=== PATIENT | male | born 1980 | race Caucasian/White ===

== ENCOUNTER → 2023-11-19 10:44 | Outpatient (REF) | payer BC, SELFPAY | LOC: HWRAD 10:44 | PROVIDERS: ATTENDING PHYSICIAN Podiatrist Foot & Ankle Surgery; FAMILY PHYSICIAN Family Medicine | DX: S90.32XA Contusion of left foot, initial encounter (principal) | CPT/HCPCS: 73630 ==

== ENCOUNTER 2023-12-16 09:15 | Inpatient (IN) | payer BC, SELFPAY ==
[2023-12-14] VITALS (8 sets, daily range): BP systolic 123–157; BP diastolic 82–104; BMI 24.9
--- NOTE | 2023-12-14 13:28 | ED.GENMED ---
History of Present Illness
General
Chief Complaint: Abdominal Pain
Source: patient
Exam Limitations: none
Time Seen by Provider: 12/14/23 13:15
Nursing documentation reviewed up to this point in time: agreed with
Travel History
Have you had any contact with someone who has COVID-19?: No
Do you have any symptoms of coronavirus? Fever > 100 degrees, chills, cough, shortness of breath, sore throat, loss of taste or smell, muscle aches, or headache?: No
History of Present Illness
History of Present Illness:
43-year-old male with no significant past medical history, had a hernia operation as a baby presents with abdominal pain. Abdominal pain started 2 days ago and has been gradually worsening. His last bowel movement was 2 days ago and normal but he
feels constipated. He tried a fleets enema, MiraLAX, prune juice with no results. He states his urine is orange. He states pain is now 5/10. Pain is generalized in his abdomen but worse in the right and left lower quadrants. He denies fever
chills, denies nausea or vomiting.
He went to urgent care yesterday and had an x-ray and was told he was 'full of poop.'
Past History
Past History
ED Past Medical History: None
ED Past Surgical History: Tonsilectomy and Other (Hernia repair as a baby)
Social History
Tobacco: Smoker
Alcohol: Occasional
Personal:
Living: with family
Employment: Employed
Review of Systems
Review of Systems
Allergies reviewed?: Yes
All Other Systems: ROS reviewed and negative except as documented in HPI and ROS
Constitutional: Denies fever
Respiratory: Denies trouble breathing
Cardiac: Denies chest pain
ABD/GI: Reports abdominal pain and constipated; Denies nausea, vomiting, diarrhea, bloody stools or black stools
: Reports flank pain (Bilateral) and dark urine; Denies dysuria, frequency, difficulty voiding or urgency
Musculoskeletal: Reports no symptoms
Skin: Reports no symptoms
Neurological: Reports no symptoms
Phy Exam
Physical Exam
Physical Exam:
GENERAL: No acute distress. A&Ox3.
CONSTITUTIONAL: Afebrile.
EYES: Clear, conjunctivae normal
ENMT: moist mucus membranes
RESPIRATORY: Regular respirations, nonlabored, lungs clear.
CARDIOVASCULAR: Regular rate and rhythm, no murmurs, no rubs.
GI: Soft, generally tender to palpate abdomen, more tender in the right and left lower quadrants. No palpable masses. Normal BS
MUSCULOSKELETAL: Moves with ease. Well perfused.
SKIN: Warm, dry, pink
PSYCH: Normal mood and affect. Well kept, interactive and appropriate
NEUROLOGIC: Awake, alert and oriented. No focal neurological deficits
Course
Orders/Labs/Results
Orders:
Orders
12/14/23 Breakfast
NPO
Allow oral meds: Yes
Allow clear liquids: Sips of Clears
NPO with Ice Chips: Yes
12/14/23 13:27
0.9% Sodium Chloride 1000 ml [Nss] 1,000 ml IV BOLUS
12/14/23 13:28
CT Abd/pel W Iv And Oral Contr Urgent
Comment:
Reason For Exam: Generalized abdominal pain, constipation
Iohexol [Omnipaque] 50 ml .ROUTE .STK-MED ONE
Iohexol [Omnipaque] See Protocol PO NOW STA
12/14/23 13:36
C-Reactive Protein Urgent
Complete Blood Count/With Diff Urgent
Comprehensive Metabolic Panel Urgent
Lipase Urgent
12/14/23 14:15
Urinalysis Reflex To Culture Urgent
Date Specimen was Collected: 12/14/23
Time Specimen was Collected: 14:11
Urine Microscopic Reflex Cult Urgent
12/14/23 17:07
Piperacillin/Tazo 3.375 Gram [Zosyn] 3.375 gram in 50 ml IV NOW
12/14/23 20:00
Add On- LAB Urgent
Tests Added?: CRP
Code Status As Directed
Resuscitation Status: Full Code
Lactated Ringers [Lr] 1,000 ml IV 100 mls/hr
Intake/ Output As Directed
Frequency: q12h
Notify MD As Directed
Notify physician if: HR <50 or >110
SBP <90 or >160
O2 <90%
UOP <30ml/hr
Smoking Cessation Counseling [RESP] Routine
12/14/23 20:01
Activity As Directed
Activity Level: Out of Bed-Early Mobility
Vital Signs As Directed
Frequency: Per unit guidelines
DX Deep Vein Thrombosis Video Routine
12/14/23 20:05
HYDROmorphone [Dilaudid] 0.25 mg IV Q4HPRN PRN
HYDROmorphone [Dilaudid] 0.5 mg IV Q4HPRN PRN
Ketorolac [Toradol] 15 mg IV Q6HPRN PRN
12/14/23 20:42
Admit/Transfer Patient As Directed
Co-Sign Provider:
Level of Care: Observation services
Assign to:: Medical/Surgical
Physician / Group: Uche Howe
Diagnosis: perforated diverticulitis without free air or free fluid
12/14/23 22:00
Famotidine [Pepcid] 20 mg IV HS
12/15/23 00:00
Piperacillin/Tazo 3.375 Gram [Zosyn] 3.375 gram in 50 ml IV Q6H
12/15/23 07:39
Basic Metabolic Panel IN AM
CRP [C-Reactive Protein] IN AM
Complete Blood Count/No Diff IN AM
12/15/23 08:00
Loratadine [Claritin] 10 mg PO DAILY
12/15/23 18:00
Enoxaparin Sodium [Lovenox] 40 mg SC QPM
Abnormal Lab Results
12/14/23 12/14/23
13:36 14:15
WBC 25.6 H 10^3/uL
(4.8-10.8)
MCH 32.1 H pg
(27.0-31.0)
Abs Immat Gran (auto) 0.1 H 10^3/uL
(0-0.05)
Absolute Neuts (auto) 20.7 H 10^3/uL
(1.4-6.5)
Absolute Monos (auto) 1.5 H 10^3/uL
(0.1-0.6)
Neutrophils % 80.6 H %
(42.2-75.2)
Lymphocytes % 11.9 L %
(20.5-51.1)
Sodium 134 L mmol/L
(135-145)
Carbon Dioxide 19 L mmol/L
(22-30)
Glucose 166 H mg/dl
(70-99)
C-Reactive Protein 267.40 H mg/L
(0.0-10.00)
Urine Ketones 1+ A
(Negative)
Ur Occult Blood Reflex Trace A
(Negative)
Urine Bacteria (Reflex) Few A
(Negative)
12/14/23 13:36
12/14/23 13:36
Vital Signs
Initial and Last Documented VS:
Initial Vital Signs
Temp Pulse Resp BP Pulse Ox
99.2 F 111 18 157/96 96
12/14/23 13:05 12/14/23 13:05 12/14/23 13:05 12/14/23 13:05 12/14/23 13:05
Last Documented Vital Signs
Temp Pulse Resp BP Pulse Ox
99 F 85 16 136/94 97
12/15/23 07:17 12/15/23 07:17 12/15/23 07:17 12/15/23 07:17 12/15/23 07:17
MDM/Problems Addressed
Differential Diagnosis Includes:
Constipation, bowel obstruction, diverticulitis, gallbladder disease
MDM/Problems Addressed:
43-year-old male with no significant past medical history, had a hernia operation as a baby presents with abdominal pain. Abdominal pain started 2 days ago and has been gradually worsening. His last bowel movement was 2 days ago and normal but he
feels constipated. He tried a fleets enema, MiraLAX, prune juice with no results. He states his urine is orange. He states pain is now 5/10. Pain is generalized in his abdomen but worse in the right and left lower quadrants. He denies fever
chills, denies nausea or vomiting.
He went to urgent care yesterday and had an x-ray and was told he was 'full of poop.'
Afebrile, NAD
3:00 p.m.
CBC: WBC 25.6 with elevated neutrophils
CMP: No clinically significant abnormality
U/A neg
4:30 p.m.
IMPRESSION:
Mid sigmoid colon wall thickening and inflammation with localized extraluminal free air just superior to the segment of inflamed colon most compatible with a bowel perforation, potentially on the basis of a perforated diverticulitis. No free air
elsewhere in the abdomen. No pericolonic abscess. Wall thickening of an adjacent distal ileal small bowel loop, which may be reactive.
Consulted Colorectal surgeon Dr. Howe, sent of CT results
He will admit to his service
7:00 p.m.
Pt remaines stable. IV antibiotics in.
Awaiting Colorectal surgeon
*Critical Care Note
Total Time (30-74mins, 75-104mins- exclusive of procedures): Not Applicable
ED Attending Note
-
Portions of this chart may have been created with voice recognition software.� Occasional wrong word or��sound alike� substitutions may have occurred due to the inherent limitations of voice recognition software.
Discharge Plan
Departure
Patient Disposition: Admit
Date of Disposition: 12/14/23
Time of Disposition: 17:05
Presentation/result/management discussed w/ accepting MD/DO: Dr. Howe
Condition: Fair
Discharge Problem:
Bowel perforation
Interventions
Interventions:
*Risk Screen - Suicide Last Done: 12/14/23 13:05
*General Assessment Last Done: 12/14/23 13:57
*Neglect/Abuse Screening Last Done: 12/14/23 13:05
ED- Fall Risk Assessment Last Done: 12/14/23 13:37
*ED COVID-19 Vaccine History Last Done: 12/14/23 13:05
*Nursing Disposition Last Done: 12/14/23 22:35
TA-Rppijh-Ejguuidptq Assessment Last Done: 12/14/23 13:36
Discharge Date and Time
Discharge Date/Time: 12/14/23 22:35
[2023-12-14] MEDS: OMNIPAQUE 50 ML PO (13:32)
[2023-12-14] MEDS: NSS 1000 IV (13:33)
[2023-12-14 13:43] LABS: % Basophils 0.5 % (0-2); % Eosinophils 0.6 % (0-6); % Immature Granulocytes 0.5 % (0-0.5); % Lymphocytes 11.9 % (20.5-51.1); % Monocytes 5.9 % (1.7-9.3); % Neutrophils 80.6 % (42.2-75.2); Absolute Basophils 0.1 10^3/uL (0-0.2); Absolute Eosinophils 0.2 10^3/uL (0-0.7); Absolute Immature Granulocytes 0.1 10^3/uL (0-0.05); Absolute Lymphocytes 3.1 10^3/uL (1.2-3.4); Absolute Monocytes 1.5 10^3/uL (0.1-0.6); Absolute Neutrophils 20.7 10^3/uL (1.4-6.5); Hematocrit 44.5 % (39.0-52.0); Hemoglobin 16.1 g/dL (13.0-18.0); Mean Corp Hgb Conc. 36.2 g/dL (33.0-37.0); Mean Corpuscular Hgb 32.1 pg (27.0-31.0); Mean Corpuscular Volume 88.6 fL (80.0-94.0); Mean Platelet Volume 9.4 fL (7.4-10.4); Nucleated Red Blood Cells % 0 % (-); Platelet Count 265 10^3/uL (130-400); Red Blood Cell Count 5.02 10^6/uL (4.70-6.10); Red Cell Dist. Width 12.7 % (11.5-14.5); White Blood Cell Count 25.6 10^3/uL (4.8-10.8)
[2023-12-14 14:14] LABS: ALT (SGPT) 24 U/L (0-50); AST (SGOT) 24 U/L (17-59); Albumin 4.4 g/dl (3.5-5.0); Alkaline Phosphatase 83 U/L (38-126); Blood Urea Nitrogen 10 mg/dl (9-20); Calcium 9.5 mg/dl (8.4-10.2); Carbon Dioxide 19 mmol/L (22-30); Chloride 103 mmol/L (98-107); Estimated Creatinine Clearance > 125 ml/min; Glucose 166 mg/dl (70-99); Lipase 60 U/L (23-300); Potassium 4.1 mmol/L (3.5-5.1); Sodium 134 mmol/L (135-145); Total Bilirubin 1.2 mg/dl (0.2-1.3); Total Protein 7.5 g/dl (6.3-8.2); eGFR > 60.00
[2023-12-14 14:27] LABS: Urine Albumin Negative (Neg - Trace); Urine Bilirubin Negative (Negative); Urine Character Clear (Clear); Urine Color Yellow; Urine Glucose Negative (Negative); Urine Ketone 1+ (Negative); Urine Leukocyte Negative (Negative); Urine Nitrite Negative (Negative); Urine Occult Blood Trace (Negative); Urine Urobilinogen Negative (Neg - 1+); Urine pH 6.5 (5.0-9.0)
[2023-12-14 15:05] LABS: Urine Bacteria Few (Negative); Urine Red Blood Cell 0-2 /HPF (0-2); Urine Squamous Cell 0-2 /LPF (Few); Urine White Cell 0-2 /HPF (0-5)
[2023-12-14] MEDS: ZOSYN 50 IV ×2 (17:16→23:19)
--- NOTE | 2023-12-14 20:08 | CON.CRS ---
Consultation
-
Performing Provider: Uche Howe MD
Medical History
-
History of Present Illness:
43-year-old male with PMH of seasonal allergies, acid reflux who presents with 3 days of worsening abdominal pain. This is never happened to him before. The pain was periumbilical/suprapubic and radiated to the bilateral flanks and back. The pain
started 3 days ago and was mild. Yesterday, the pain reached its worst, about 6�10. He was seen at an urgent care. He was also having constipation. He took 2 enemas and MiraLAX yesterday. The pain did not resolve today and therefore he
presented to the emergency department. It is associated with nausea, but denies vomiting. Denies any fevers, urinary symptoms, hematochezia, CP/SOB. He has never had a colonoscopy.
Past Medical History
Past Medical History: Other (As above)
Past Surgical History: Other (Inguinal hernia at 2 months old, bilateral LLE fasciotomies in [facility] for compartment syndrome due to overtraining in soccer, deviated septum)
Social History
Tobacco: Smoker (1 pack/day for 20 years)
Alcohol: Occasional
Drug: None
Living: With Family
Employment: Employed
Family History
Family History: Other (Maternal grandfather and uncle with diverticulitis, IBS)
Allergies / Home Medications
Allergy/AdvReac Type Severity Reaction Status Date / Time
No Known Allergies Allergy Verified 12/14/23 13:05
�Medication �Instructions �Recorded �Confirmed �Type
cimetidine 400 mg tablet 400 mg PO BID PRN 12/14/23 12/14/23 History
indigestion/chronic plantars wart
cimetidine 400 mg tablet 400 mg PO DAILY Gastrointestinal 12/14/23 12/14/23 History
Issue
loratadine 10 mg tablet (Claritin) 10 mg PO DAILY Allergies 12/14/23 12/14/23 History
Review of Systems
-
All other systems: Negative unless noted
A 10 point review of systems was completed, and was negative except as per HPI.
Physical Exam
Vital Signs
Temp 99.2 F 12/14/23 13:05
Pulse 86 12/14/23 14:00
Resp Rate 18 12/14/23 14:00
Blood pressure 136/82 12/14/23 17:20
SaO2 98 12/14/23 18:15
12/13/23 12/14/23 12/15/23
06:59 06:59 06:59
Actual Weight 76.4 kg
Body Mass Index (BMI) 24.9
Lab Results / Allergies
12/14/23 13:36
12/14/23 13:36
WBC 25.6 10^3/uL (4.8-10.8) H 12/14/23 13:36
Hgb 16.1 g/dL (13.0-18.0) 12/14/23 13:36
Hct 44.5 % (39.0-52.0) 12/14/23 13:36
Plt Count 265 10^3/uL (130-400) 12/14/23 13:36
Abs Immat Gran (auto) 0.1 10^3/uL (0-0.05) H 12/14/23 13:36
Neutrophils % 80.6 % (42.2-75.2) H 12/14/23 13:36
Allergy/AdvReac Type Severity Reaction Status Date / Time
No Known Allergies Allergy Verified 12/14/23 13:05
Physical Exam
General: Well Developed, Well Nourished and No Apparent Distress
HEENT: Normocephalic and Atraumatic
Respiratory: Non Labored Respirations
GI: Soft, Non Distended and Tender (Mildly to moderately tender in the suprapubic region, less so in the RLQ/LLQ; no rebound, minimal guarding)
Skin: Warm and Dry
Neuro: Awake and AO x 3
Data Reviewed
-
CT Scan: Image Personally Visualized and interpreted, Discussed with Physician, Discussed with Patient and Discussed with Family
Labs: Labs Reviewed by me, Discussed with Physician and Discussed with Patient
Assessment / Plan
-
43-year-old male with PMH of acid reflux and seasonal allergies who presents with 3 days of worsening lower abdominal pain associated with nausea; no previous colonoscopy; in the ED, afebrile, heart rate 111 but improved to 80, WBC 25.6, Cr 0.7, CT
concerning for sigmoid inflammation with focus of extraluminal air, concerning for perforated diverticulitis without free air or free fluid
�No acute surgical intervention currently indicated as patient is nonperitoneal and hemodynamically stable; explained the pathophysiology of diverticulitis and the treatment options, which range from nonoperative measures to emergency surgery;
explained the risks of nonoperative measures including but not limited to treatment failure requiring surgery; explained the risks of surgery in the urgent setting, including but not limited to, increased risk for open surgery and ostomy; patient
understood, and parents were present; all questions were answered
� Admit to colorectal
� Keep n.p.o. with IVF
� DVT PPx with Lovenox
� Continue IV Zosyn
� Pain control with Toradol and Dilaudid as needed
� OOB/IS
[2023-12-14] MEDS: LR 1000 IV (21:06)
[2023-12-14] MEDS: PEPCID 20 MG IV (22:52)
[2023-12-14] MEDS: NSS (PRESERVATIVE FREE) 8 ML IV (22:53)
[2023-12-14] MEDS: DILAUDID 0.25 MG IV (23:00)
[2023-12-15] MEDS: DILAUDID 0.5 MG IV ×4 (04:08→21:26)
[2023-12-15] MEDS: ZOSYN 50 IV ×4 (05:17→21:25)
[2023-12-15 07:17] VITALS: BP 136/94
[2023-12-15 08:03] LABS: Hematocrit 42.4 % (39.0-52.0); Hemoglobin 14.6 g/dL (13.0-18.0); Mean Corp Hgb Conc. 34.4 g/dL (33.0-37.0); Mean Corpuscular Hgb 31.6 pg (27.0-31.0); Mean Corpuscular Volume 91.8 fL (80.0-94.0); Mean Platelet Volume 9.6 fL (7.4-10.4); Platelet Count 248 10^3/uL (130-400); Red Blood Cell Count 4.62 10^6/uL (4.70-6.10); Red Cell Dist. Width 12.7 % (11.5-14.5); White Blood Cell Count 21.8 10^3/uL (4.8-10.8)
[2023-12-15 08:25] LABS: Blood Urea Nitrogen 10 mg/dl (9-20); Calcium 9.1 mg/dl (8.4-10.2); Carbon Dioxide 19 mmol/L (22-30); Chloride 105 mmol/L (98-107); Estimated Creatinine Clearance 119 ml/min; Glucose 85 mg/dl (70-99); Sodium 135 mmol/L (135-145); eGFR > 60.00
--- NOTE | 2023-12-15 08:32 | W.PN.CRS1 ---
Today's Communication / Plan
-
trend WBC (coming down)
continue abx
keep NPO today
I/S
Assessment/Plan
-
43-year-old male with PMH of acid reflux and seasonal allergies who presents with 3 days of worsening lower abdominal pain associated with nausea; no previous colonoscopy; in the ED, afebrile, heart rate 111 but improved to 80, WBC 25.6, Cr 0.7, CT
concerning for sigmoid inflammation with focus of extraluminal air, concerning for perforated diverticulitis without free air or free fluid
WBC: 21.8 from 25.6. Vitals normal. Afebrile.
� Continue NPO status today.
� Will continue with IVFS.
� DVT PPx with Lovenox.
� Continue IV Zosyn.
� Pain control with Toradol and Dilaudid as needed.
� OOB as tolerated.
- Incentive spirometry q1 hour while awake ordered.
- No plans for OR today. If worsens, will require a colectomy with colostomy creation. Discussed with patient.
Subjective Data
Subjective Data
Date of Service: December 15, 2023
Patient states he has some suprapubic and llq tenderness which has not changed. He has no nausea or vomiting. He has flatus and had a bowel movement yesterday AM. He is urinating without difficulty.
Objective Data
-
Vital Signs
Temp Pulse Resp BP Pulse Ox
99 F 85 16 136/94 97
12/15/23 07:17 12/15/23 07:17 12/15/23 07:17 12/15/23 07:17 12/15/23 07:17
Intake & Output
12/14/23 12/15/23 12/16/23
06:59 06:59 06:59
Intake Total 900 / 900
Balance 900 / 900
Intake:
IV fluids (Total) 900 / 900
Lab Results
06/12/24 07:39
12/15/23 07:39
Physical Exam
-
General: No Acute Distress and AOx3
Abdomen: Soft, Non Distended and Tender (suprapubic/LLQ )
Skin: Warm and Dry
[2023-12-15] MEDS: LR 1000 IV ×2 (09:09→18:43)
[2023-12-15] MEDS: CLARITIN 10 MG PO (09:09)
--- NOTE | 2023-12-15 14:38 | CM ---
Initial assessment completed with patient with in room. Patient resides with and 10 y/o daughter in a 2 story home plus basement with B/B on 2nd and 1/2 bath on , 5 steps to enter. No DME or in-home services. 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
drove and worked. No history of psychiatric hospitalizations. Pharmacy is [facility] in [place] and he does not have a PCP at this time. Discharge Plan of Care: Anticipate home with no needs. Will continue to follow should needs change.
[2023-12-15 15:30] VITALS: BP 138/93
[2023-12-15] MEDS: LOVENOX SC (17:38)
[2023-12-15 18:36] VITALS: BP 156/95
[2023-12-15] MEDS: NSS (PRESERVATIVE FREE) 8 ML IV (21:25)
[2023-12-15] MEDS: PEPCID 20 MG IV (21:26)
[2023-12-15 23:35] VITALS: BP 137/84
[2023-12-16] MEDS: DILAUDID 0.5 MG IV ×2 (02:59→08:56)
[2023-12-16] MEDS: ZOSYN 50 IV ×4 (02:59→21:06)
[2023-12-16] MEDS: LR 1000 IV ×2 (05:45→13:27)
[2023-12-16 07:35] VITALS: BP 120/72
[2023-12-16 07:43] LABS: % Basophils 0.7 % (0-2); % Eosinophils 5.2 % (0-6); % Immature Granulocytes 0.4 % (0-0.5); % Lymphocytes 22.4 % (20.5-51.1); % Monocytes 8.2 % (1.7-9.3); % Neutrophils 63.1 % (42.2-75.2); Absolute Basophils 0.1 10^3/uL (0-0.2); Absolute Eosinophils 0.8 10^3/uL (0-0.7); Absolute Immature Granulocytes 0.1 10^3/uL (0-0.05); Absolute Lymphocytes 3.6 10^3/uL (1.2-3.4); Absolute Monocytes 1.3 10^3/uL (0.1-0.6); Absolute Neutrophils 10.1 10^3/uL (1.4-6.5); Hematocrit 42.2 % (39.0-52.0); Mean Corp Hgb Conc. 33.2 g/dL (33.0-37.0); Mean Corpuscular Volume 93.6 fL (80.0-94.0); Mean Platelet Volume 9.9 fL (7.4-10.4); Nucleated Red Blood Cells % 0 % (-); Platelet Count 284 10^3/uL (130-400); Red Blood Cell Count 4.51 10^6/uL (4.70-6.10); Red Cell Dist. Width 12.3 % (11.5-14.5); White Blood Cell Count 15.9 10^3/uL (4.8-10.8)
[2023-12-16] MEDS: CLARITIN 10 MG PO (08:55)
--- NOTE | 2023-12-16 09:13 | W.PN.CRS1 ---
Today's Communication / Plan
-
clears to fulls
add tylenol
Assessment/Plan
-
43-year-old male with PMH of acid reflux and seasonal allergies who presents with 3 days of worsening lower abdominal pain associated with nausea; no previous colonoscopy; in the ED, afebrile, heart rate 111 but improved to 80, WBC 25.6, Cr 0.7, CT
concerning for sigmoid inflammation with focus of extraluminal air, concerning for perforated diverticulitis without free air or free fluid
WBC: 15.9 from 21.8. Vitals normal. Afebrile.
� Start on clear liquid diet. Okay to advance to fulls later today if tolerating clears.
� Will continue with IVFS, d/c when tolerating clears.
� DVT PPx with Lovenox.
� Continue IV Zosyn.
� Pain control with Toradol and Dilaudid as needed. Will add Tylenol.
� OOB as tolerated.
- Incentive spirometry q1 hour while awake ordered.
- No plans for OR today. If worsens, will require a colectomy with colostomy creation. Discussed with patient.
Subjective Data
Subjective Data
Date of Service: December 16, 2023
Patient states he still feels sore. He is in less pain than when he came in. He has flatus. He has no bowel movements yet. He is hungry.
Objective Data
-
Vital Signs
Temp Pulse Resp BP Pulse Ox
98.0 F 80 16 120/72 96
12/16/23 07:35 12/16/23 07:35 12/16/23 07:35 12/16/23 07:35 12/16/23 07:35
Intake & Output
12/15/23 12/16/23 12/17/23
06:59 06:59 06:59
Intake Total 900 / 900 1100 / 1100 1200 / 1200
Balance 900 / 900 1100 / 1100 1200 / 1200
Intake:
IV fluids (Total) 900 / 900 1100 / 1100 1100 / 1100
IV piggybacks 100 / 100
Other:
Number of approximated SMALL 2
amounts of urine
Number of approximated MODERATE 2 2
amounts of urine
Lab Results
12/16/23 06:06
12/15/23 07:39
Physical Exam
-
General: No Acute Distress and AOx3
Abdomen: Soft, Non Distended and Tender (suprapubic, LLQ, improving)
Skin: Warm and Dry
[2023-12-16] MEDS: TYLENOL 650 MG PO ×4 (10:24→21:07)
[2023-12-16 15:53] VITALS: BP 132/85
[2023-12-16] MEDS: LOVENOX 40 MG SC (17:13)
[2023-12-16] MEDS: PEPCID 20 MG IV (21:06)
[2023-12-16] MEDS: NSS (PRESERVATIVE FREE) 8 ML IV (21:06)
[2023-12-16 23:20] VITALS: BP 119/95
[2023-12-17] MEDS: ZOSYN 50 IV ×4 (02:30→21:17)
[2023-12-17] MEDS: TYLENOL 650 MG PO ×5 (02:30→21:18)
[2023-12-17] MEDS: TYLENOL PO (06:08)
[2023-12-17 07:50] LABS: % Basophils 0.9 % (0-2); % Eosinophils 5.9 % (0-6); % Immature Granulocytes 0.4 % (0-0.5); % Neutrophils 63.8 % (42.2-75.2); Absolute Basophils 0.1 10^3/uL (0-0.2); Absolute Eosinophils 0.8 10^3/uL (0-0.7); Absolute Immature Granulocytes 0.1 10^3/uL (0-0.05); Absolute Lymphocytes 2.5 10^3/uL (1.2-3.4); Absolute Monocytes 1.1 10^3/uL (0.1-0.6); Absolute Neutrophils 8.1 10^3/uL (1.4-6.5); Hematocrit 39.3 % (39.0-52.0); Hemoglobin 13.7 g/dL (13.0-18.0); Mean Corp Hgb Conc. 34.9 g/dL (33.0-37.0); Mean Corpuscular Hgb 31.5 pg (27.0-31.0); Mean Corpuscular Volume 90.3 fL (80.0-94.0); Mean Platelet Volume 9.5 fL (7.4-10.4); Nucleated Red Blood Cells % 0 % (-); Platelet Count 299 10^3/uL (130-400); Red Blood Cell Count 4.35 10^6/uL (4.70-6.10); White Blood Cell Count 12.7 10^3/uL (4.8-10.8)
--- NOTE | 2023-12-17 08:42 | W.PN.CRS1 ---
Today's Communication / Plan
-
low residue diet
Assessment/Plan
-
43-year-old male with PMH of acid reflux and seasonal allergies who presents with 3 days of worsening lower abdominal pain associated with nausea; no previous colonoscopy; in the ED, afebrile, heart rate 111 but improved to 80, WBC 25.6, Cr 0.7, CT
concerning for sigmoid inflammation with focus of extraluminal air, concerning for perforated diverticulitis without free air or free fluid
WBC: 12.7 from 15.9. Vitals normal. Afebrile.
� Will advance diet to low residue.
� DVT PPx with Lovenox.
� Continue IV Zosyn.
� Pain control with Toradol/Tylenol, will switch Dilaudid to Roxicodone.
� OOB as tolerated.
- Incentive spirometry q1 hour while awake ordered.
- Okay for d/c once WBC normalized and tolerating low residue diet.
Subjective Data
Subjective Data
Date of Service: December 17, 2023
Patient states he feels 'good'. He has no nausea or vomiting. He is having flatus and bowel movements. He has little to no pain.
Objective Data
-
Vital Signs
Temp Pulse Resp BP Pulse Ox
97.8 F 78 20 119/95 99
12/17/23 07:25 12/16/23 23:20 12/16/23 23:20 12/16/23 23:20 12/17/23 07:25
Intake & Output
12/16/23 12/17/23 12/18/23
06:59 06:59 06:59
Intake Total 1100 / 1100 2540 / 2540
Balance 1100 / 1100 2540 / 2540
Intake:
Oral fluids 1340 / 1340
IV fluids (Total) 1100 / 1100 1100 / 1100
IV piggybacks 100 / 100
Other:
Number of approximated SMALL 2
amounts of urine
Number of approximated MODERATE 2 4
amounts of urine
Number of unmeasured liquid
stools
Rectum 1
Lab Results
12/17/23 07:06
12/15/23 07:39
Physical Exam
-
General: No Acute Distress and AOx3
Abdomen: Soft, Non Distended and Tender (mild, suprapubic)
Skin: Warm and Dry
[2023-12-17] MEDS: CLARITIN 10 MG PO (09:45)
--- NOTE | 2023-12-17 12:43 | CM ---
Uche is feeling somewhat better today and hoping to go home tomorrow pending blood work results and toleration of diet.
Plan: Discharge to home with family; no identified needs.
PCP: None
[facility]
[2023-12-17 15:39] VITALS: BP 128/81
[2023-12-17] MEDS: LOVENOX 40 MG SC (17:50)
[2023-12-17] MEDS: PEPCID 20 MG IV (21:17)
[2023-12-17] MEDS: NSS (PRESERVATIVE FREE) 8 ML IV (21:17)
[2023-12-17 23:19] VITALS: BP 139/91
[2023-12-18] MEDS: ZOSYN 50 IV ×4 (02:05→21:12)
[2023-12-18] MEDS: TYLENOL 650 MG PO ×5 (02:05→21:13)
[2023-12-18] MEDS: TYLENOL PO (06:00)
[2023-12-18 07:25] VITALS: BP 137/95
[2023-12-18] MEDS: CLARITIN 10 MG PO (08:40)
[2023-12-18 08:48] LABS: % Basophils 0.7 % (0-2); % Eosinophils 4.9 % (0-6); % Immature Granulocytes 0.4 % (0-0.5); % Lymphocytes 23.1 % (20.5-51.1); % Monocytes 7.2 % (1.7-9.3); % Neutrophils 63.7 % (42.2-75.2); Absolute Basophils 0.1 10^3/uL (0-0.2); Absolute Eosinophils 0.7 10^3/uL (0-0.7); Absolute Immature Granulocytes 0.1 10^3/uL (0-0.05); Absolute Lymphocytes 3.3 10^3/uL (1.2-3.4); Hematocrit 44.7 % (39.0-52.0); Hemoglobin 15.8 g/dL (13.0-18.0); Mean Corp Hgb Conc. 35.3 g/dL (33.0-37.0); Mean Corpuscular Hgb 31.7 pg (27.0-31.0); Mean Corpuscular Volume 89.8 fL (80.0-94.0); Mean Platelet Volume 9.1 fL (7.4-10.4); Nucleated Red Blood Cells % 0 % (-); Platelet Count 328 10^3/uL (130-400); Red Blood Cell Count 4.98 10^6/uL (4.70-6.10); Red Cell Dist. Width 12.4 % (11.5-14.5); White Blood Cell Count 14.1 10^3/uL (4.8-10.8)
[2023-12-18 09:13] LABS: Blood Urea Nitrogen 12 mg/dl (9-20); Calcium 10.1 mg/dl (8.4-10.2); Carbon Dioxide 23 mmol/L (22-30); Chloride 105 mmol/L (98-107); Estimated Creatinine Clearance 106 ml/min; Glucose 113 mg/dl (70-99); Potassium 4.5 mmol/L (3.5-5.1); Sodium 140 mmol/L (135-145); eGFR > 60.00
--- NOTE | 2023-12-18 09:13 | W.PN.CRS1 ---
Today's Communication / Plan
-
continue low residue
abx
hold on d/c given wbc increase
Assessment/Plan
-
43-year-old male with PMH of acid reflux and seasonal allergies who presents with 3 days of worsening lower abdominal pain associated with nausea; no previous colonoscopy; in the ED, afebrile, heart rate 111 but improved to 80, WBC 25.6, Cr 0.7, CT
concerning for sigmoid inflammation with focus of extraluminal air, concerning for perforated diverticulitis without free air or free fluid
WBC: 14.1 from 12.7. Vitals normal. Afebrile.
� Continue low residue diet.
� DVT PPx with Lovenox.
� Continue IV Zosyn.
� Pain control with Toradol/Tylenol, Roxicodone PRN.
� OOB as tolerated.
- Incentive spirometry q1 hour while awake ordered.
- Hold on d/c today given WBC. Trend labs.
- Suppository x 1.
Subjective Data
Subjective Data
Date of Service: December 18, 2023
Patient states that he feels much better overall. He has some flatus but no formed bowel movement. He denies bleeding. His tenderness has overall improved. He denies nausea or vomiting. He is tolerating a diet.
Objective Data
-
Vital Signs
Temp Pulse Resp BP Pulse Ox
97.9 F 69 18 137/95 97
12/18/23 07:25 12/18/23 07:25 12/18/23 07:25 12/18/23 07:25 12/18/23 07:25
Intake & Output
12/17/23 12/18/23 12/19/23
06:59 06:59 06:59
Intake Total 2540 / 2540 2200 / 2200
Balance 2540 / 2540 2200 / 2200
Intake:
Oral fluids 1340 / 1340 2100 / 2100
IV fluids (Total) 1100 / 1100
IV piggybacks 100 / 100 100 / 100
Other:
Number of approximated MODERATE 4 3
amounts of urine
Number of unmeasured liquid
stools
Rectum 1
Lab Results
12/18/23 08:35
Physical Exam
-
General: No Acute Distress and AOx3
Abdomen: Soft, Non Distended and Tender (RLQ- mild)
Skin: Warm and Dry
[2023-12-18] MEDS: DULCOLAX 10 MG RECTAL (10:30)
[2023-12-18 15:20] VITALS: BP 137/88
[2023-12-18] MEDS: LOVENOX 40 MG SC (17:48)
[2023-12-18] MEDS: NSS (PRESERVATIVE FREE) 8 ML IV (21:12)
[2023-12-18] MEDS: PEPCID 20 MG IV (21:12)
[2023-12-18 23:33] VITALS: BP 141/91
[2023-12-19] MEDS: TYLENOL PO ×4 (02:45→13:25)
[2023-12-19] MEDS: ZOSYN 50 IV ×4 (02:46→21:20)
[2023-12-19 07:30] VITALS: BP 126/90
[2023-12-19 07:53] LABS: % Eosinophils 5.9 % (0-6); % Immature Granulocytes 0.4 % (0-0.5); % Lymphocytes 23.7 % (20.5-51.1); % Monocytes 6.7 % (1.7-9.3); % Neutrophils 62.3 % (42.2-75.2); Absolute Basophils 0.2 10^3/uL (0-0.2); Absolute Eosinophils 0.9 10^3/uL (0-0.7); Absolute Immature Granulocytes 0.1 10^3/uL (0-0.05); Absolute Lymphocytes 3.6 10^3/uL (1.2-3.4); Absolute Neutrophils 9.5 10^3/uL (1.4-6.5); Hematocrit 42.9 % (39.0-52.0); Hemoglobin 15.4 g/dL (13.0-18.0); Mean Corp Hgb Conc. 35.9 g/dL (33.0-37.0); Mean Corpuscular Hgb 32.9 pg (27.0-31.0); Mean Corpuscular Volume 91.7 fL (80.0-94.0); Mean Platelet Volume 9.1 fL (7.4-10.4); Nucleated Red Blood Cells % 0 % (-); Platelet Count 316 10^3/uL (130-400); Red Blood Cell Count 4.68 10^6/uL (4.70-6.10); Red Cell Dist. Width 12.3 % (11.5-14.5); White Blood Cell Count 15.3 10^3/uL (4.8-10.8)
[2023-12-19 08:07] LABS: Blood Urea Nitrogen 11 mg/dl (9-20); Calcium 9.9 mg/dl (8.4-10.2); Carbon Dioxide 25 mmol/L (22-30); Chloride 107 mmol/L (98-107); Estimated Creatinine Clearance 95 ml/min; Glucose 93 mg/dl (70-99); Potassium 4.3 mmol/L (3.5-5.1); Sodium 141 mmol/L (135-145); eGFR > 60.00
[2023-12-19] MEDS: CLARITIN 10 MG PO (08:15)
[2023-12-19] MEDS: TYLENOL 650 MG PO ×3 (09:12→21:20)
[2023-12-19] MEDS: OMNIPAQUE 50 ML PO (09:27)
--- NOTE | 2023-12-19 10:42 | W.PN.GS2 ---
Today's Communication / Plan
-
CT scan.
Assessment / Plan
-
This is a 43-year-old male who presents with his first episode of diverticulitis. Being managed nonoperatively, clinically improved however white count rising.
Will obtain a CT abdomen pelvis with p.o. and IV contrast. This may be both therapeutic and diagnostic.
If the CT scan reassuring okay to resume low residue diet and possible discharge later today.
Continue antibiotics will need a 14-day course total.
Time Spent
Total Time Spent with Patient (in minutes): 20
Subjective Data
-
Date of Service: December 19, 2023
Interval Events:
No acute events overnight. Slept well. Pain Controlled. Denies Nausea/Vomiting, + flatus but no BMs. Tolerating diet.
Objective Data
-
Intake and Output
12/18/23 12/19/23 12/20/23
06:59 06:59 06:59
Intake Total 2200 / 2200 1420 / 1420
Balance 2200 / 2200 1420 / 1420
Intake:
Oral fluids 2100 / 2100 1320 / 1320
IV piggybacks 100 / 100 100 / 100
Other:
Number of approximated MODERATE 3 7
amounts of urine
How many times incontinent 3
SATURATED amount urine
Number of unmeasured liquid
stools
Rectum 1
Vital Signs
Temp Pulse Resp BP Pulse Ox
98.2 F 69 16 126/90 97
12/19/23 07:30 12/19/23 07:30 12/19/23 07:30 12/19/23 07:30 12/19/23 07:30
Lab Results
12/19/23 07:35
12/19/23 07:35
Calcium 9.9 mg/dl (8.4-10.2) 12/19/23 07:35
Total Bilirubin 1.2 mg/dl (0.2-1.3) 12/14/23 13:36
AST 24 U/L (17-59) 12/14/23 13:36
ALT 24 U/L (0-50) 12/14/23 13:36
Alkaline Phosphatase 83 U/L (38-126) 12/14/23 13:36
Total Protein 7.5 g/dl (6.3-8.2) 12/14/23 13:36
Albumin 4.4 g/dl (3.5-5.0) 12/14/23 13:36
Physical Exam
-
GENERAL/NEURO: Awake, Alert, no distress
CHEST: Unlabored breathing on RA
ABDOMEN: Soft, mildly tender to palpation in the left lower quadrant/suprapubic area, nondistended.
[2023-12-19] MEDS: NSS 1000 IV (13:22)
[2023-12-19 15:20] VITALS: BP 135/89
--- NOTE | 2023-12-19 16:19 | W.PN.UPDATE ---
Update Note
Progress Note Update
S: Increasing leukocytosis in setting of diverticulitis
B: CT imaging reviewed with progressing diverticulitis and new abscess noted approx 3cm with a possible second abscess forming as well.
A: Patient afebrile and without increasing pain/tenderness. Discussed drain placement with Dr. Quesada in IR, unfortunately, d/t overlying bowel a drain is unable to be placed.
R: Keep NPO with sips of clears. Continue ABX. Follow for fevers, CBC wiht AM labs. Will discuss management options with colorectal team in AM and determine plan moving forward. May require surgical intervention. Patient updated on CT findings and
questions addressed
[2023-12-19] MEDS: TORADOL 15 MG IV (17:31)
[2023-12-19] MEDS: LOVENOX 40 MG SC (17:32)
[2023-12-19] MEDS: NSS (PRESERVATIVE FREE) 8 ML IV (21:20)
[2023-12-19] MEDS: PEPCID 20 MG IV (21:20)
[2023-12-19 23:05] VITALS: BP 131/96
[2023-12-20] MEDS: NSS 1000 IV ×2 (02:45→14:29)
[2023-12-20] MEDS: TYLENOL PO ×5 (02:46→14:31)
[2023-12-20] MEDS: ZOSYN 50 IV ×4 (02:46→20:35)
[2023-12-20 06:08] LABS: % Immature Granulocytes 0.4 % (0-0.5); % Lymphocytes 37.6 % (20.5-51.1); % Monocytes 6.8 % (1.7-9.3); % Neutrophils 47.2 % (42.2-75.2); Absolute Basophils 0.1 10^3/uL (0-0.2); Absolute Eosinophils 0.9 10^3/uL (0-0.7); Absolute Immature Granulocytes 0.1 10^3/uL (0-0.05); Absolute Lymphocytes 5.1 10^3/uL (1.2-3.4); Absolute Monocytes 0.9 10^3/uL (0.1-0.6); Absolute Neutrophils 6.4 10^3/uL (1.4-6.5); Hematocrit 40.9 % (39.0-52.0); Hemoglobin 14.1 g/dL (13.0-18.0); Mean Corp Hgb Conc. 34.5 g/dL (33.0-37.0); Mean Corpuscular Hgb 31.5 pg (27.0-31.0); Mean Corpuscular Volume 91.3 fL (80.0-94.0); Mean Platelet Volume 9.2 fL (7.4-10.4); Nucleated Red Blood Cells % 0 % (-); Platelet Count 335 10^3/uL (130-400); Red Blood Cell Count 4.48 10^6/uL (4.70-6.10); Red Cell Dist. Width 12.1 % (11.5-14.5); White Blood Cell Count 13.5 10^3/uL (4.8-10.8)
[2023-12-20 06:34] LABS: Blood Urea Nitrogen 11 mg/dl (9-20); Calcium 9.4 mg/dl (8.4-10.2); Carbon Dioxide 21 mmol/L (22-30); Chloride 107 mmol/L (98-107); Estimated Creatinine Clearance 87 ml/min; Glucose 76 mg/dl (70-99); Potassium 4.1 mmol/L (3.5-5.1); Sodium 138 mmol/L (135-145); eGFR > 60.00
[2023-12-20 07:44] VITALS: BP 153/89
[2023-12-20] MEDS: CLARITIN 10 MG PO (09:06)
--- NOTE | 2023-12-20 09:46 | W.PN.CRS1 ---
Today's Communication / Plan
-
- Continue Zosyn.
� DVT PPx with Lovenox.
� Pain control with Toradol/Tylenol, Roxicodone PRN.
� OOB as tolerated.
- Incentive spirometry q1 hour while awake ordered.
- Stoma marking.
Assessment/Plan
-
43-year-old male with PMH of acid reflux and seasonal allergies who presents with 3 days of worsening lower abdominal pain associated with nausea; no previous colonoscopy; in the ED, afebrile, heart rate 111 but improved to 80, WBC 25.6, Cr 0.7, CT
concerning for sigmoid inflammation with focus of extraluminal air, concerning for perforated diverticulitis without free air or free fluid. 1st episode
WBC: 13.5 from 15.2. Vitals normal. Afebrile.
�Repeat CT scan of the abdomen pelvis with contrast yesterday reveals inflammation of the sigmoid colon is stable. There is a new fluid collection centrally in the lower abdomen surrounded by bowel. The abscess measures 3.1 x 2.6 cm. There is a
possible second extraluminal collection of air but there is no free air or obstruction.
I reviewed the current findings with the patient and his parents. We discussed the treatment options which include continued nonoperative management versus surgery. I explained that his abscess is not amenable to percutaneous drainage and small
abscesses can sometimes respond to antibiotics alone. Surgery could involve placement of a drain with or without a bowel resection. If a resection is performed there is a high chance of a temporary stoma. I explained that by placing a drain it
may or may not help and further surgery in the acute setting is still possible. I clearly explained that ultimate surgery will be most likely recommended but at that time the inflammation has resolved the operation can be performed in a minimally
invasive approach with a very low likelihood of a stoma.
At the present time clinically he is stable and his white count has improved. He would like to avoid an ostomy if at all possible so the plan for now is to continue with antibiotics and monitor his white count vital signs. We discussed changing
antibiotics but after I reviewed this with one of our infectious disease consultants, they recommend continuing with the current regimen. if anything worsens, or fails to improve, the plan is for surgery. I will ask our enterostomal therapists to
place ostomy tripp in anticipation of possible surgery this week. I will place him tentatively on the schedule as time allows but the date can be modified based upon his clinical course. We discussed the risks and benefits of each approach and
they are in agreement with the current plan. All questions answered.
Subjective Data
Subjective Data
Date of Service: December 20, 2023
He has little to no pain and is passing gas. He is hungry and denies any nausea.
Objective Data
-
Vital Signs
Temp Pulse Resp BP Pulse Ox
98.0 F 64 18 153/89 96
12/20/23 07:44 12/20/23 07:44 12/20/23 07:44 12/20/23 07:44 12/20/23 07:44
Intake & Output
12/19/23 12/20/23 12/21/23
06:59 06:59 06:59
Intake Total 1420 / 1420 1919
Balance 1420 / 1420 1919
Intake:
Oral fluids 1320 / 1320 1919
IV piggybacks 100 / 100
Other:
Number of approximated MODERATE 7 4
amounts of urine
How many times incontinent 3
SATURATED amount urine
Number of unmeasured liquid
stools
Rectum 1 1
Lab Results
12/20/23 05:18
12/20/23 05:18
Physical Exam
-
General: No Acute Distress
Abdomen: Soft, Non Distended and Non Tender
Extremities: No Calf Tenderness
Data Reviewed
-
CT Scan: Image Reviewed and Report Reviewed
--- NOTE | 2023-12-20 14:08 | CM ---
Reviewed the chart notes. Patient ambulating ad jorge luis in the hallway. Diet advanced to full liquid. CM continues to be available to patient/family and is monitoring medical plan for needs at discharge.
Plan: Discharge to home when medically stable.
--- NOTE | 2023-12-20 15:28 | WOUNDNOTE ---
CHRISTIAN RN NOTE: Stoma sited abdomen in all quadrants as requested by Dr. Arellano. Identified rectus muscle, avoided all creases and scars. Shaved abdomen with electric razor and cleaned skin. LUQ marked 7.5cm from midline and 5cm proximal from abdominal
line. LLQ marked 6 cm from midline and 2.5cm distal from umbilical line. RUQ marked 7.5cm from midline and 4.5cm proximal from umbilical line. RLQ marked 7cm from midline and 2cm distal from umbilical line. Answered all questions and will follow if
needed.
[2023-12-20 15:49] VITALS: BP 152/83
[2023-12-20] MEDS: LOVENOX 40 MG SC (17:13)
[2023-12-20] MEDS: TYLENOL 650 MG PO ×2 (17:14→22:05)
[2023-12-20] MEDS: PEPCID 20 MG IV (22:05)
[2023-12-20] MEDS: NSS (PRESERVATIVE FREE) 8 ML IV (22:05)
[2023-12-20 23:34] VITALS: BP 144/89
[2023-12-21] MEDS: TYLENOL 650 MG PO ×6 (02:13→21:35)
[2023-12-21] MEDS: ZOSYN 50 IV ×4 (02:13→21:35)
[2023-12-21 06:13] LABS: % Eosinophils 5.2 % (0-6); % Immature Granulocytes 0.7 % (0-0.5); % Lymphocytes 34.7 % (20.5-51.1); % Monocytes 7.4 % (1.7-9.3); Absolute Basophils 0.1 10^3/uL (0-0.2); Absolute Eosinophils 0.7 10^3/uL (0-0.7); Absolute Immature Granulocytes 0.1 10^3/uL (0-0.05); Absolute Lymphocytes 4.6 10^3/uL (1.2-3.4); Absolute Neutrophils 6.8 10^3/uL (1.4-6.5); Hematocrit 39.9 % (39.0-52.0); Mean Corp Hgb Conc. 35.1 g/dL (33.0-37.0); Mean Corpuscular Hgb 31.5 pg (27.0-31.0); Mean Corpuscular Volume 89.7 fL (80.0-94.0); Mean Platelet Volume 9.1 fL (7.4-10.4); Nucleated Red Blood Cells % 0 % (-); Platelet Count 366 10^3/uL (130-400); Red Blood Cell Count 4.45 10^6/uL (4.70-6.10); Red Cell Dist. Width 12.2 % (11.5-14.5); White Blood Cell Count 13.4 10^3/uL (4.8-10.8)
[2023-12-21 06:40] LABS: Blood Urea Nitrogen 9 mg/dl (9-20); Calcium 9.4 mg/dl (8.4-10.2); Carbon Dioxide 24 mmol/L (22-30); Chloride 107 mmol/L (98-107); Estimated Creatinine Clearance 79 ml/min; Glucose 83 mg/dl (70-99); Potassium 4.8 mmol/L (3.5-5.1); Sodium 139 mmol/L (135-145); eGFR > 60.00
[2023-12-21 07:26] VITALS: BP 145/97
--- NOTE | 2023-12-21 08:29 | W.PN.CRS1 ---
Addendum entered and electronically signed by Uche Howe MD 12/21/23 19:16:
For CDI, Cr has gradually increased, likely mild LIBBY; cont IVF
Original Note:
Today's Communication / Plan
-
Continue fulls
Assessment/Plan
-
43-year-old male with PMH of acid reflux and seasonal allergies who presents with 3 days of worsening lower abdominal pain associated with nausea; no previous colonoscopy; in the ED, afebrile, heart rate 111 but improved to 80, WBC 25.6, Cr 0.7, CT
concerning for sigmoid inflammation with focus of extraluminal air, concerning for perforated diverticulitis without free air or free fluid
12/17- wbc 14 from 12
12/18- wbc 15, repeat CT showing 3cm abscess, possible second forming
AFVSS
wbc 13.4 from 13.4
� Clinically doing well; continue nonoperative measures
� Patient prefers to stick to clear liquids to minimize risk of surgery; okay to continue fulls and let patient choose
� DVT PPx with Lovenox
� Continue IV Zosyn
� Pain control with Toradol and Dilaudid as needed
� OOB/encourage IS, SCDs
Dispo�repeat WBC tomorrow
Subjective Data
Subjective Data
Date of Service: December 21, 2023
No overnight events.
Pain has been minimal.
Denies nausea/vomiting. Tolerating diet.
+flatus +BMs +voiding
Pt is OOB.
Objective Data
-
Vital Signs
Temp Pulse Resp BP Pulse Ox
97.5 F 65 20 145/97 98
12/21/23 07:26 12/21/23 07:26 12/21/23 07:26 12/21/23 07:26 12/21/23 07:26
Intake & Output
06/17/24 06/18/24 06/19/24
06:59 06:59 06:59
Intake Total 1919 2740 / 2740
Balance 1919 2740 / 2740
Intake:
Oral fluids 1919 / 1679
IV fluids (Total) 96
IV piggybacks 100 / 100
Other:
Number of approximated MODERATE 4 2
amounts of urine
Number of unmeasured liquid
stools
Rectum 1 3
Lab Results
12/21/23 06:00
12/21/23 05:31
Physical Exam
-
General: No Acute Distress and AOx3
HEENT: Grossly Normal
Abdomen: Soft, Non Distended, Tender (Minimally tender to deep palpation in the LLQ/suprapubic region), No Guarding and No Rebound
Skin: Warm and Dry
[2023-12-21] MEDS: CLARITIN 10 MG PO (08:51)
--- NOTE | 2023-12-21 11:09 | PN.CDI ---
CDI
- -
CDI:
Physician Documentation Request
Admit Date: 12/16/23 09:15
Dear Doctor Shyam,
Please review the following and provide your response in the progress notes.
Clinical Indicators:
Pt admitted with diverticulitis with abscess
Creatinine lab values as noted
Laboratory Tests
12/14/23 12/18/23 12/21/23
13:36 08:35 05:31
Creatinine 0.7 0.9 1.2
Clarify which of the following accurately represents the patient's renal status:
- Acute kidney injury (non-traumatic) - see criteria
- Other (please explain)
Criteria for LIBBY*
1 Increase in serum creatinine by > or = to 0.3 mg/dL (> or = to 26.5 micromol/L) within 48 hours, OR
2 Increase in serum creatinine to > or = to 1.5 times baseline, which is known or presumed to have occurred within 7 days, OR
3 Urine volume < 0.5 nL/kg/hour for six hours
Use of terms such as suspected, likely, concern for, or probable (associated with a specific diagnosis that is being evaluated, monitored, or treated as if it exists) are acceptable and can be coded in the inpatient setting, when documented at the
time of discharge.
Thank you,
Diamond Matamoros RN, BSN
CDI Specialist
Available via [place] [employer]
Please use your independent medical judgment in providing your response.
*Source: Kidney Disease: Improving Global Outcomes (KDIGO) 2012
[2023-12-21 15:52] VITALS: BP 136/89
[2023-12-21] MEDS: LR 1000 IV (17:28)
[2023-12-21] MEDS: LOVENOX 40 MG SC (17:31)
[2023-12-21] MEDS: PEPCID 20 MG IV (21:35)
[2023-12-21] MEDS: NSS (PRESERVATIVE FREE) 8 ML IV (21:36)
[2023-12-21 23:12] VITALS: BP 153/89
[2023-12-22] MEDS: TYLENOL 650 MG PO ×6 (03:38→22:09)
[2023-12-22] MEDS: ZOSYN 50 IV ×4 (03:39→20:28)
--- NOTE | 2023-12-22 03:54 | DOWNTIME ---
There was a [employer] Client Knowledge Manager Downtime on 12/22/2023 from 0100 to 12/22/2023 at 0337. Downtime documentation of patient's care, including medication administrations, has been reconciled in the electronic record per guidelines. Refer to the
patient's paper chart under the miscellaneous tab to see printed paper medication records and downtime forms.
[2023-12-22 07:01] LABS: % Basophils 1.3 % (0-2); % Eosinophils 5.5 % (0-6); % Immature Granulocytes 0.5 % (0-0.5); % Lymphocytes 37.8 % (20.5-51.1); % Monocytes 8.1 % (1.7-9.3); % Neutrophils 46.8 % (42.2-75.2); Absolute Basophils 0.1 10^3/uL (0-0.2); Absolute Eosinophils 0.6 10^3/uL (0-0.7); Absolute Immature Granulocytes 0.1 10^3/uL (0-0.05); Absolute Lymphocytes 4.2 10^3/uL (1.2-3.4); Absolute Monocytes 0.9 10^3/uL (0.1-0.6); Absolute Neutrophils 5.2 10^3/uL (1.4-6.5); Hematocrit 41.3 % (39.0-52.0); Mean Corp Hgb Conc. 33.9 g/dL (33.0-37.0); Mean Corpuscular Volume 91.4 fL (80.0-94.0); Mean Platelet Volume 9.1 fL (7.4-10.4); Nucleated Red Blood Cells % 0 % (-); Platelet Count 373 10^3/uL (130-400); Red Blood Cell Count 4.52 10^6/uL (4.70-6.10); White Blood Cell Count 11.1 10^3/uL (4.8-10.8)
[2023-12-22 07:15] VITALS: BP 153/92
[2023-12-22 07:25] LABS: Blood Urea Nitrogen 7 mg/dl (9-20); Calcium 9.5 mg/dl (8.4-10.2); Carbon Dioxide 23 mmol/L (22-30); Chloride 106 mmol/L (98-107); Estimated Creatinine Clearance 87 ml/min; Glucose 83 mg/dl (70-99); Potassium 4.4 mmol/L (3.5-5.1); Sodium 138 mmol/L (135-145); eGFR > 60.00
[2023-12-22] MEDS: CLARITIN 10 MG PO (09:11)
--- NOTE | 2023-12-22 09:29 | W.PN.CRS1 ---
Today's Communication / Plan
-
Advance to low residue diet.
Possible OR tomorrow. If his WBC continues to improve, then the OR will be cancelled and he will be discharged tomorrow on antibiotics with the plan for an outpatient CT and colonoscopy.
Risks/benefits of each discussed, all questions answered.
Assessment/Plan
-
43-year-old male with PMH of acid reflux and seasonal allergies who presents with 3 days of worsening lower abdominal pain associated with nausea; no previous colonoscopy; in the ED, afebrile, heart rate 111 but improved to 80, WBC 25.6, Cr 0.7, CT
concerning for sigmoid inflammation with focus of extraluminal air, concerning for perforated diverticulitis without free air or free fluid
/- wbc 14 from 12
16- wbc 15, repeat CT showing 3cm abscess, possible second forming
AFVSS
wbc 11.2 from 13.4
� Clinically doing well; continue nonoperative measures
� advance to low residue diet
� DVT PPx with Lovenox
� Continue IV Zosyn
� Pain control with Toradol and Dilaudid as needed
� OOB/encourage IS, SCDs
Dispo�repeat WBC tomorrow
Subjective Data
Subjective Data
Date of Service: December 22, 2023
He has no complaints. He is hungry and has minimal abdominal discomfort. He is moving his bowels, loose as expected.
Objective Data
-
Vital Signs
Temp Pulse Resp BP Pulse Ox
97.7 F 67 18 153/92 97
12/22/23 07:15 12/22/23 07:15 12/22/23 07:15 12/22/23 07:15 12/22/23 07:15
Intake & Output
12/21/23 12/22/23 12/23/23
06:59 06:59 06:59
Intake Total 2740 / 2740 2270 / 2270
Balance 2740 / 2740 227 / 2269
Intake:
Oral fluids 1680 / 1680 1320 / 1320
IV fluids (Total) 960 / 960 700 / 700
IV piggybacks 100 / 100 250 / 250
Other:
Number of approximated MODERATE 2 4
amounts of urine
Number of approximated LARGE 6
amounts of urine
Number of unmeasured liquid
stools
Rectum 3
Lab Results
12/22/23 06:21
12/22/23 06:21
Physical Exam
-
General: No Acute Distress
Abdomen: Soft, Non Distended and Non Tender
Extremities: No Calf Tenderness
--- NOTE | 2023-12-22 09:51 | CM ---
Reviewed the chart notes. Patient's diet advanced to low residual. Possible discharge tomorrow if patient continues to improve. CM continues to be available to patient/family and is monitoring medical plan for needs at discharge.
Plan: Discharge to home when medically stable. No needs anticipated.
[2023-12-22] MEDS: LR 1000 IV (15:00)
[2023-12-22 15:27] VITALS: BP 141/90
--- NOTE | 2023-12-22 17:03 | PTCARENOTE ---
Patient requested [place] paperwork be filled out. Dr. Howe requested paperwork be sent to his office. Patient's [place] paperwork faxed to his office at fax # [phone].
[2023-12-22] MEDS: LOVENOX 40 MG SC (18:51)
[2023-12-22] MEDS: PEPCID 20 MG IV (21:00)
[2023-12-22] MEDS: NSS (PRESERVATIVE FREE) 8 ML IV (21:00)
[2023-12-22 23:16] VITALS: BP 127/81
[2023-12-23] MEDS: TYLENOL 650 MG PO ×3 (03:00→14:34)
[2023-12-23] MEDS: ZOSYN 50 IV ×2 (03:31→08:47)
[2023-12-23] MEDS: TYLENOL PO (05:45)
[2023-12-23 06:55] LABS: Hemoglobin 15.3 g/dL (13.0-18.0); Mean Corp Hgb Conc. 34.8 g/dL (33.0-37.0); Mean Corpuscular Volume 89.2 fL (80.0-94.0); Platelet Count 438 10^3/uL (130-400); Red Blood Cell Count 4.93 10^6/uL (4.70-6.10); Red Cell Dist. Width 12.4 % (11.5-14.5); White Blood Cell Count 11.2 10^3/uL (4.8-10.8)
[2023-12-23 06:59] LABS: % Basophils 1.5 % (0-2); % Eosinophils 5.1 % (0-6); % Immature Granulocytes 0.5 % (0-0.5); % Lymphocytes 41.3 % (20.5-51.1); % Monocytes 7.6 % (1.7-9.3); Absolute Basophils 0.2 10^3/uL (0-0.2); Absolute Eosinophils 0.6 10^3/uL (0-0.7); Absolute Immature Granulocytes 0.1 10^3/uL (0-0.05); Absolute Lymphocytes 4.6 10^3/uL (1.2-3.4); Absolute Monocytes 0.9 10^3/uL (0.1-0.6); Absolute Neutrophils 4.9 10^3/uL (1.4-6.5); Hematocrit 45.2 % (39.0-52.0); Hemoglobin 15.3 g/dL (13.0-18.0); Mean Corp Hgb Conc. 33.8 g/dL (33.0-37.0); Mean Corpuscular Hgb 31.2 pg (27.0-31.0); Mean Corpuscular Volume 92.1 fL (80.0-94.0); Mean Platelet Volume 9.2 fL (7.4-10.4); Nucleated Red Blood Cells % 0 % (-); Platelet Count 418 10^3/uL (130-400); Red Blood Cell Count 4.91 10^6/uL (4.70-6.10); Red Cell Dist. Width 12.2 % (11.5-14.5); White Blood Cell Count 11.2 10^3/uL (4.8-10.8)
[2023-12-23 07:26] VITALS: BP 154/85
[2023-12-23 07:37] LABS: Blood Urea Nitrogen 9 mg/dl (9-20); Calcium 10.3 mg/dl (8.4-10.2); Carbon Dioxide 24 mmol/L (22-30); Chloride 107 mmol/L (98-107); Estimated Creatinine Clearance 87 ml/min; Glucose 84 mg/dl (70-99); Potassium 4.6 mmol/L (3.5-5.1); Sodium 140 mmol/L (135-145); eGFR > 60.00
[2023-12-23] MEDS: CLARITIN 10 MG PO (08:47)
--- NOTE | 2023-12-23 08:47 | W.PN.CRS1 ---
Today's Communication / Plan
-
No surgery indicated
Continue low residue
Plan for discharge this afternoon if no further issues
Assessment/Plan
-
43-year-old male with PMH of acid reflux and seasonal allergies who presents with 3 days of worsening lower abdominal pain associated with nausea; no previous colonoscopy; in the ED, afebrile, heart rate 111 but improved to 80, WBC 25.6, Cr 0.7, CT
concerning for sigmoid inflammation with focus of extraluminal air, concerning for perforated diverticulitis without free air or free fluid
15- wbc 14 from 12
16- wbc 15, repeat CT showing 3cm abscess, possible second forming
12/20- wbc 13
12/22- wbc 11.2
AFVSS
� Clinically doing well; continue nonoperative measures
� Continue low residue
� DVT PPx with Lovenox
� Continue IV Zosyn; will convert to Augmentin x 2 weeks on discharge
� Pain control with Toradol and Dilaudid as needed
� OOB/encourage IS, SCDs
Dispo�plan for discharge this afternoon; will follow-up as outpatient in 2-3 weeks
Subjective Data
Subjective Data
Date of Service: December 23, 2023
No overnight events.
Denies pain.
Denies nausea/vomiting. Tolerating diet.
+flatus +BMs +voiding
Pt is OOB.
Objective Data
-
Vital Signs
Temp Pulse Resp BP Pulse Ox
98.5 F 61 20 154/85 99
12/23/23 07:26 12/23/23 07:26 12/23/23 07:26 12/23/23 07:26 12/23/23 07:26
Intake & Output
12/22/23 12/23/23 12/24/23
06:59 06:59 06:59
Intake Total 2270 / 2270 2510 / 2510
Balance 2270 / 0 2509 / 2509
Intake:
Oral fluids 1320 / 1320 1860 / 1860
IV fluids (Total) 700 / 700 550 / 550
IV piggybacks 250 / 250 100 / 100
Other:
Number of approximated MODERATE 4 3
amounts of urine
Number of approximated LARGE 6
amounts of urine
Lab Results
12/23/23 06:38
12/23/23 06:38
Physical Exam
-
General: No Acute Distress and AOx3
HEENT: Grossly Normal
Abdomen: Soft, Non Distended, Non Tender, No Guarding and No Rebound
Skin: Warm and Dry
--- NOTE | 2023-12-23 09:29 | CM ---
Reviewed the chart notes and spoke with the patient at the bedside. The patient is being discharged to home today. No needs identified. Spouse will provide transportation. CM continues to be available to patient/family and is monitoring medical
plan for needs at discharge.
Plan: Discharge to home today.
[2023-12-23] MEDS: MYLICON 80 MG PO (14:34)
[2023-12-23 15:30] VITALS: BP 148/88
== END 2023-12-23 16:47 | disposition home or self-care (01) | DRG 392 ==
LOC: 2 NORTH 09:15
PROVIDERS: Physician Assistant; Registered Nurse; Surgery; ADMITTING PHYSICIAN Surgery; EMERGENCY PHYSICIAN Emergency Medicine
DX: K57.20 Diverticulitis of large intestine with perforation and abscess without bleeding (principal); N17.9 Acute kidney failure, unspecified; K59.00 Constipation, unspecified; F17.210 Nicotine dependence, cigarettes, uncomplicated; J30.2 Other seasonal allergic rhinitis; K21.9 Gastro-esophageal reflux disease without esophagitis; Z79.899 Other long term (current) drug therapy; Z87.19 Personal history of other diseases of the digestive system
CPT/HCPCS: 74177; 80048; 80053; 81003; 81015; 83690; 85025; 85027; 86140; 87070; 96365; 99285; 99406; Q9967

== ENCOUNTER → 2024-02-29 06:28 | Day surgery (SDC) | payer BC, SELFPAY | LOC: GI 06:28 | PROVIDERS: ATTENDING PHYSICIAN Surgery | DX: K57.30 Diverticulosis of large intestine without perforation or abscess without bleeding (principal); K63.5 Polyp of colon; K62.1 Rectal polyp; K57.32 Diverticulitis of large intestine without perforation or abscess without bleeding | CPT/HCPCS: 45380; 88305 ==

== ENCOUNTER → 2024-04-21 11:48 | Outpatient (REF) | payer BC, SELFPAY | LOC: HWRAD 11:48 | PROVIDERS: ATTENDING PHYSICIAN Surgery; FAMILY PHYSICIAN Physician Assistant Medical | DX: K57.32 Diverticulitis of large intestine without perforation or abscess without bleeding (principal) | CPT/HCPCS: 74177; Q9967 ==